=== PATIENT | male | born 1995 | race Caucasian/White ===

== ENCOUNTER 2017-06-22 00:21 | Emergency (ER) | payer OTHER ==
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
== END 2017-06-22 01:37 | disposition home or self-care (01) ==
LOC: MADERS 00:21
DX: S09.90XA Unspecified injury of head, initial encounter (principal); I10 Essential (primary) hypertension; Y04.0XXA Assault by unarmed brawl or fight, initial encounter
CPT/HCPCS: 70450

== ENCOUNTER 2017-06-26 14:59 | Emergency (ER) | payer OTHER ==
--- NOTE | 2017-06-26 16:43 | RAD ---
1 VIEW CHEST 2 VIEWS LEFT RIBS: Date: 06/26/17 HISTORY: Pain upon inspiration. COMPARISON: None. FINDINGS: 1 VIEW CHEST: Normal cardiac silhouette. Pulmonary vessels and hilum are normal. Costophrenic angles are clear. No masses or consolidation. No pneumothorax. No osseous abnormalities. LEFT RIBS 2 VIEWS: No fracture. No cortical irregularity. No periosteal reaction. IMPRESSION: 1. No acute cardiopulmonary process. 2. Unremarkable left rib radiograph series. POS: [facility]
== END 2017-06-26 17:20 | disposition home or self-care (01) ==
LOC: MADERS 14:59
DX: S29.011A Strain of muscle and tendon of front wall of thorax, initial encounter (principal); Y04.0XXA Assault by unarmed brawl or fight, initial encounter

== ENCOUNTER 2017-11-19 11:48 | Outpatient (CLI) | payer OTHER ==
--- NOTE | 2017-11-19 13:57 | RAD ---
5 VIEWS CERVICAL SPINE: Date: 11/19/17 HISTORY: Radiculopathy for several months. FINDINGS: AP, lateral, both oblique, and open-mouth odontoid views cervical spine obtained. The cervical spinal alignment is unremarkable. No evidence of cervical spine fractures seen. No bony lesions seen. IMPRESSION: Normal 5 views cervical spine. No evidence of acute or chronic changes seen. POS: [facility]
== END 2017-11-19 11:49 | disposition home or self-care (01) ==
LOC: MADRAD 11:48
PROVIDERS: ATTEND Pediatrics
DX: M54.12 Radiculopathy, cervical region (principal)
CPT/HCPCS: 72050

== ENCOUNTER 2020-10-06 20:14 | Emergency (ER) | payer OTHER ==
[2020-10-07 11:42] LABS: HIV (1/2) Antibody/Antigen Non-Reactive (NonReactive); HIV 1/2 INDEX 0.19 S/CO (<1.00)
[2020-10-09 16:12] LABS: Chlam.trachomatis by PCR,Urine Not Detected (NotDetected)
== END 2020-10-06 20:41 | disposition home or self-care (01) ==
LOC: MADERS 20:14 → EEVIPCON 20:14 → MADERS 20:41
DX: R30.0 Dysuria (principal)
CPT/HCPCS: 87389; 87491; 87591; 99283